=== PATIENT | female | born 1950 | race Caucasian/White ===

== ENCOUNTER → 2021-05-26 | Outpatient (CLI) | payer BC, MEDICARE ==
[~2021-05-26] MED LIST: BISM262T13 PO; BUDE3CAP5 PO; CHLS4PK PO; CHOL4PAC2 PO; CRAN1TAB PO; CRAN450C PO; FAMO20TA13 PO; FAMO20TA5 PO; FAMO20TA73 PO; GLUC-174 PO; HYDR-3729 PO; IBUP-30 PO; IBUP200C PO; KCL20TCR PO; LACT1CAP62 PO; LOPE2CAP PO; NFPRILOC40 PO; OLME1TAB14 PO; OLME1TAB25 PO; ONDA-41 PO; ONDA4TAB11 PO; ONDA8TAB2 PO; ONDA8TAB6 PO; PARO20TA4 PO; POTA-51 PO; POTA20TA15 PO; Prednisone PO; SIMV40TA4 PO
--- NOTE | 2021-05-26 16:34 | Diagnostic Imaging Report ---
INDICATION: Screening. EXAMINATION: Digital mammogram bilateral screening. 3D tomographic images were obtained and reviewed. The current study was also evaluated with a Computer Aided Detection (CAD) system. COMPARISON: This study was compared to the prior exam of 09/05/2012. At this time there are no current complaints. FINDINGS: The breasts are predominantly fatty. When compared to the previous study there has been no significant change. There is no primary or secondary sign of malignancy noted. IMPRESSION: 1. There is no evidence of malignancy. 2. The patient should have her annual bilateral screening mammogram on schedule in of April 2022. ACR BI-RADS Category 1: Negative. Result letter will be mailed to the patient. Note: At least 10% of breast cancer is not imaged by mammography. Dictated on workstation # [id number]
== END ==
LOC: RAD 09:30
PROVIDERS: ATTEND Physician Assistant
DX: Z12.31 Encounter for screening mammogram for malignant neoplasm of breast (principal)
CPT/HCPCS: 77063; 77067

== ENCOUNTER → 2022-01-04 | Outpatient (CLI) | payer MEDICARE, OTHER ==
[~2022-01-04] VITALS: Ht 162.6 cm; Wt 127.3 kg
[~2022-01-04] MED LIST changes: +ACETAMINOPHEN 500 MG TAB (TYLENOL) PO PRN; +BEBTELOVIMAB 175 MG/2 ML VIAL IV ONE; +EPINEPHrine INJECTION 1 MG/ML AMP IM PRN; +ONDANSETRON 4 MG/2 ML (SDV) Z0FRAN IV PRN; +diphenhydrAMINE 50 MG/ML INJ (BENADRYL) IV PRN
[2022-01-04 08:17] VITALS: BP 148/77
[2022-01-04 08:18] VITALS: BP 148/77
[2022-01-04 09:17] VITALS: BP 132/71
== END ==
LOC: INFUSION 07:50
PROVIDERS: ATTEND Nurse Practitioner Family
DX: U07.1 COVID-19 (principal)

== ENCOUNTER → 2022-05-28 | Outpatient (CLI) | payer MEDICARE, OTHER ==
[~2022-05-28] MED LIST changes: -ACETAMINOPHEN 500 MG TAB (TYLENOL) PO PRN; -BEBTELOVIMAB 175 MG/2 ML VIAL IV ONE; -EPINEPHrine INJECTION 1 MG/ML AMP IM PRN; -ONDANSETRON 4 MG/2 ML (SDV) Z0FRAN IV PRN; -diphenhydrAMINE 50 MG/ML INJ (BENADRYL) IV PRN
--- NOTE | 2022-05-28 10:22 | Diagnostic Imaging Report ---
INDICATION: Routine screening. Comparison is made with prior mammogram 05/26/2021 and 09/05/2012. 2-D and 3-D bilateral screening mammography was performed with CAD. Both breasts are primarily involutional. No mass or malignant-appearing microcalcifications are seen. Axillae are unremarkable. IMPRESSION: No mammographic features suspicious for malignancy are identified. ACR BI-RADS Category 1: Negative. Result letter will be mailed to the patient. Note: At least 10% of breast cancer is not imaged by mammography. BI-RADS Category 1 Dictated by: Dictated on workstation # [id number]
== END ==
LOC: RAD 08:37
PROVIDERS: ATTEND Physician Assistant
DX: Z12.31 Encounter for screening mammogram for malignant neoplasm of breast (principal)
CPT/HCPCS: 77063; 77067

== ENCOUNTER → 2023-03-27 | Outpatient (CLI) | payer MEDICARE, OTHER ==
--- NOTE | 2023-03-27 13:14 | Diagnostic Imaging Report ---
INDICATION: Decreased range of motion of the cervical spine. Cervicalgia. COMPARISON: None FINDINGS: Frontal, lateral, swimmer's, open-mouth, and oblique views of the cervical spine were obtained. Cervical spine is seen down to the C7-T1 level on the lateral view. Evaluation static alignment shows mild straightening of normal lordotic curvature. This may be related to positioning as well as underlying degenerative changes. There is no significant anterolisthesis or retrolisthesis. There is no evidence of jumped facets. Open-mouth view shows appropriate C1-C2 alignment. Vertebral body heights are preserved. There is no acute fracture. Moderate multilevel degenerative changes are noted and consistent intervertebral disc height loss with anterior and posterior endplate osteophyte formations as well as multilevel facet arthropathy. Oblique views show multilevel osseous neural foraminal stenosis, left greater than right. IMPRESSION: 1. No acute fracture or dislocation cervical spine. 2. Moderate multilevel degenerative changes. Dictated by: Dictated on workstation # [id number]
== END ==
LOC: RAD 11:17
PROVIDERS: ATTEND Internal Medicine
DX: M50.30 Other cervical disc degeneration, unspecified cervical region (principal); I10 Essential (primary) hypertension; I25.10 Atherosclerotic heart disease of native coronary artery without angina pectoris; E78.2 Mixed hyperlipidemia; J30.2 Other seasonal allergic rhinitis
CPT/HCPCS: 72050